=== PATIENT | female | born 2000 | race Caucasian/White ===

== ENCOUNTER 2023-02-24 21:02 | Emergency (ER) | payer MEDICAID ==
[~2023-02-24] VITALS: Ht 160 cm; Wt 80.7 kg
[2023-02-24 21:57] VITALS: TEMP 98.4
--- NOTE | 2023-02-24 21:57 | NUR ---
BIBS. MEDICAL CLEARANCE FOR VOLUNTARY ADMISSION FOR SUICIDAL IDEATION. NO SPECIFIC PLAN. PT [id number], AMBULATORY, IN NAD. PLACED IN BED, VITALS CHECKED. SAFETY PRECAUTIONS IN PLACE.
--- NOTE | 2023-02-24 22:00 | NUR ---
URINE SPECIMEN COLLECTED AND SENT TO LAB.
--- NOTE | 2023-02-24 22:01 | NUR ---
URINE COLLECTED, SENT TO LAB
--- NOTE | 2023-02-24 22:34 | NUR ---
VICE PRESIDENT EDUCATION AT BEDSIDE
[2023-02-24 22:46] LABS: BASOPHILS # (AUTO) 0.1 K/uL (0.0-0.2); BASOPHILS % (AUTO) 0.6 % (0.0-2.0); EOSINOPHILS % (AUTO) 1.9 % (0.0-6.0); HEMATOCRIT 41 % (33-45); HEMOGLOBIN 13.2 g/dL (11.5-14.8); LYMPHOCYTES # (AUTO) 3.4 K/uL (0.8-4.8); LYMPHOCYTES % (AUTO) 30.6 % (20.0-44.0); MEAN CORPUSCULAR HGB CONC 33 g/dl (31.0-36.0); MEAN CORPUSCULAR VOLUME 89 fL (82-100); MONOCYTES # (AUTO) 0.6 K/uL (0.1-1.30); MONOCYTES % (AUTO) 5.3 % (2.0-12.0); NEUTROPHILS # (AUTO) 6.9 K/uL (1.8-8.9); NEUTROPHILS % (AUTO) 61.6 % (43.0-81.0); PLATELET COUNT (AUTO) 343 K/uL (150-450); RED BLOOD CELL COUNT(AUTO) 4.57 MIL/uL (4.0-5.2); WHITE BLOOD COUNT (AUTO) 11.2 K/uL (4.3-11.0)
[2023-02-24 22:55] LABS: BILIRUBIN,URINE NEGATIVE (NEGATIVE); COLOR,URINE YELLOW (YELLOW); LEUKOCYTE ESTERASE ,URINE 1+ (NEGATIVE); NITRITE, URINE NEGATIVE (NEGATIVE); PH,URINE 6.5 (5.0-8.0); PROTEIN,URINE NEGATIVE (NEGATIVE); UGLUCOSE NEGATIVE (NEGATIVE); UROBILINOGEN,URINE 0.2 EU/dL (0.2)
[2023-02-24 22:56] LABS: CALCIUM, SERUM 9.2 mg/dL (8.5-10.1); CARBON DIOXIDE 26 mmol/L (21-32); CHLORIDE 105 mmol/L (98-107); CREATININE 0.7 mg/dL (0.6-1.3); GLUCOSE 96 mg/dL (74-106); POTASSIUM 4.1 mmol/L (3.5-5.1); SODIUM SERUM 140 mmol/L (136-145); UREA NITROGEN, BLOOD 8 mg/dL (7-18)
[2023-02-24 22:58] LABS: BACTERIA,URINE Rare /HPF (None Seen); RBC,URINE 0-2 /HPF (0-2); SQUAMOUS EPITHELIAL CELL,UR Few /HPF (None Seen)
--- NOTE | 2023-02-24 23:00 | NUR ---
PT PROVIDED WITH WARM BLANKET FOR COMFORT.
[2023-02-24 23:02] LABS: ALANINE AMINOTRANSFERASE 31 U/L (12-78); ALBUMIN 3.7 g/dL (3.4-5.0); ALCOHOL, BLOOD < 3 mg/dL (0-10); ALKALINE PHOSPHATASE 92 U/L (46-116); ASPARTATE AMINOTRANSFERASE 20 U/L (15-37); BILIRUBIN,DIRECT 0.1 mg/dL (0.0-0.2); BILIRUBIN,TOTAL 0.4 mg/dL (0.2-1.0); TOTAL PROTEIN, SERUM 7.3 g/dL (6.4-8.2)
--- NOTE | 2023-02-25 01:45 | NUR ---
CALLED [facility] FOR PLACEMENT, NOBODY PICKING UP.
--- NOTE | 2023-02-25 02:30 | NUR ---
CALLED [facility] FOR PLACEMENT, STILL NOBODY PICKING UP.
--- NOTE | 2023-02-25 02:51 | NUR ---
FAX CLINICALS TO [facility]
--- NOTE | 2023-02-25 04:05 | NUR ---
CALLED [facility] FOR PLACEMENT AND TO FOLLOW UP WITH CLINICALS, NOBODY ANSWERING THE CALL
--- NOTE | 2023-02-25 04:23 | NUR ---
REFAX CLINICALS AGAIN TO [facility] AND [facility]
--- NOTE | 2023-02-25 06:52 | NUR ---
JESSICA JO, THEY RECEIVED THE CLINICALS. HE WILL FF UP
--- NOTE | 2023-02-25 07:35 | NUR ---
PT IS BEING D/C PT DID NOT WANT TO STAY FOR VOLUNTARY SCREENING FOR PSYCH.
--- NOTE | 2023-02-25 07:46 | NUR ---
DR LANDRY, IN TO SEE PATIENT, REQUESTING TO BE DISCHARGE. PT DENIES SUICIDAL IDEATION AT THIS TIME. MEDICALLY CLEARED. AAOX4, DISCHARGE HOME IN STABLE CONDITION.
[2023-02-25 07:48] VITALS: BP 121/60
== END 2023-02-25 07:49 | disposition home or self-care (01) ==
LOC: ER 21:26
DX: R45.851 Suicidal ideations (principal); Z20.822 Contact with and (suspected) exposure to COVID-19
CPT/HCPCS: 99285; 85025; 80048; 87086; 80076; 84703; 81001; 36415; 80143; 80320; 80307; 87426; C9803; G0480